=== PATIENT | male | born 1950 ===

== ENCOUNTER 2020-06-24 15:22 | Inpatient (IN) | payer SELFPAY ==
[~2020-06-24] VITALS: Ht 177.8 cm; Wt 88.2 kg
--- NOTE | 2020-06-24 16:04 | NUR ---
THIS IS A 69 YR OLD MALE WITH HX OF BLADDER AND PROSTATE CANCER, HTN, A-FIB, AND DMII. PT PRESENTED TO [facility] TODAY AFTER WHAT IS DESRIBED OFF AND ON DIZZINESS AND LIGHTHEADEDNESS FOR "SOME TIME." PT WAS FOUND TO BE IN A JUCTIONAL RHYTHM AND HYPERTENSIVE. PT IS AXOX4 AND DEIES ANY SOB, CP UPON RESTING. PT PLACED ON CARDIAC, NIBP, AND O2 MONITORING. CRASH CART AND ZOLL IN ROOM, PT PLACED ON ZOLL PADS. DAUGHTER AT BEDSIDE. DR PAYNE CARDS IN ROOM TO ASSESS AND UPDATE PT ON POC. PT IN GOWN AND ALL BELONGINGS BAGGED. DAUGHTER HAS IN HER POSSESSION PTS WALLET AND FARAH REMOVED FROM HIS PANTS.
[2020-06-24] MEDS ORDERED: CEFAZOLIN PMX 1GM/50ML 50 ML ONE ×2 (16:25→16:47)
[2020-06-24] MEDS ORDERED: CEFAZOLIN PMX 1GM/50ML 50 ML IVPB ONE (16:30)
[2020-06-24] MEDS: SODIUM CHLORIDE 0.9% 1,000 ML IV SCH ×2 (16:30→18:35)
[2020-06-24] MEDS ORDERED: LIDOCAINE 2%, 20ML ONE (16:47)
[2020-06-24] MEDS ORDERED: MIDAZOLAM 1 MG/ML, 5ML ONE (16:47)
[2020-06-24] MEDS ORDERED: CEFAZOLIN 1,000 MG ONE ×2 (16:47→17:17)
[2020-06-24] MEDS ORDERED: FENTANYL PF 100 MCG/2ML ONE (16:47)
--- NOTE | 2020-06-24 16:56 | NUR ---
PT TO POLYGRAPH EXAMINER NOW
[2020-06-24] MEDS ORDERED: DOCUSATE 100 MG CAPSULE PO PRN (19:00)
[2020-06-24] MEDS ORDERED: OXYcodone IR 5MG TABLET PO PRN (19:00)
[2020-06-24] MEDS ORDERED: TEMAZEPAM 15 MG CAPSULE PO PRN (19:00)
[2020-06-24] MEDS ORDERED: METHOCARBAMOL 500 MG TABLET PO PRN (19:00)
[2020-06-24] MEDS ORDERED: LABETALOL 5MG/ML, 20ML IVPush PRN ×2 (19:00→20:30)
[2020-06-24] MEDS ORDERED: ONDANSETRON 2MG/ML, 2ML IVPush PRN (19:00)
[2020-06-24] MEDS ORDERED: GUAIFENESIN/DM 200-20MG, 10ML UDC PO PRN (19:00)
[2020-06-24] MEDS ORDERED: ACETAMINOPHEN 325 MG TABLET PO PRN (19:00)
[2020-06-24] MEDS ORDERED: morphine SULFATE 10 MG/ML, 1ML IVPush PRN (19:00)
[2020-06-24 19:34] LABS: BASOPHILS % (AUTO) 0 % (0-1); EOSINOPHILS % (AUTO) 0 % (1-7); LYMPHOCYTES % (AUTO) 7 % (22-44); MEAN CORPUSCULAR HEMOGLOBIN 32.2 pg (27.5-34.5); MEAN CORPUSCULAR HGB CONC 33.5 g/dL (33.2-36.2); MONOCYTES % (AUTO) 5 % (2-9); NEUTROPHILS % (AUTO) 87 % (42-75); PLATELET COUNT 245 x10^3/uL (130-400); RED BLOOD COUNT 3.88 x10^6/uL (4.38-5.82); RED CELL DISTRIBUTION WIDTH 13.7 % (9.4-14.8)
[2020-06-24 19:46] LABS: ANION GAP 6 mmol/L (5-15); CALCIUM 8.6 mg/dL (8.5-10.1); CHLORIDE 111 mmol/L (98-107); CREATININE 1.77 mg/dL (0.7-1.3)
[2020-06-24 19:50] LABS: MD SCAN
[2020-06-24] MEDS ORDERED: ASPI-1026 PO (20:12)
[2020-06-24] MEDS ORDERED: FERR142T13 PO-COUM (20:12)
[2020-06-24] MEDS ORDERED: GLIM2TAB7 PO (20:12)
[2020-06-24] MEDS ORDERED: vitamin d (20:12)
[2020-06-24] MEDS ORDERED: CA C1TAB63 PO (20:12)
[2020-06-24] MEDS ORDERED: VIT1TABL34 PO (20:12)
[2020-06-24] MEDS ORDERED: METF500T17 PO (20:12)
[2020-06-24] MEDS ORDERED: METO-93 PO (20:17)
[2020-06-24 20:50] VITALS: BP 167/85
[2020-06-24] MEDS ORDERED: INSU100C SQ-INSULIN (20:50)
[2020-06-24] MEDS ORDERED: novalog (20:50)
[2020-06-24] MEDS: FAMOTIDINE 20 MG TABLET PO SCH (20:56)
[2020-06-24] MEDS ORDERED: INSULIN LISPRO 100 UNITS/ML, PEN SQ-INSULIN SCH (21:30)
[2020-06-24] MEDS ORDERED: INSU100V13 SQ (21:31)
[2020-06-24] MEDS ORDERED: INSULIN GLARGINE 100 UNITS/ML, PEN SQ-INSULIN SCH (22:00)
[2020-06-24 22:43] VITALS: BP 191/97
[2020-06-24] MEDS: ENALAPRILAT 1.25 MG/ML, 2ML IVPush PRN ×2 (22:44→23:25)
[2020-06-25] MEDS: CEFAZOLIN PMX 1GM/50ML 50 ML IV SCH ×2 (00:15→08:45)
[2020-06-25] MEDS ORDERED: CEFAZOLIN 1,000 MG IM SCH (00:30)
[2020-06-25 01:01] VITALS: BP 174/91
[2020-06-25] MEDS: hydrALAzine 20 MG/ML, 1ML IV PRN ×2 (02:24→09:04)
[2020-06-25] MEDS ORDERED: LABETALOL 5MG/ML, 20ML IVPush PRN (03:30)
[2020-06-25 05:35] LABS: BASOPHILS % (AUTO) 1 % (0-1); EOSINOPHILS % (AUTO) 1 % (1-7); LYMPHOCYTES % (AUTO) 11 % (22-44); MEAN CORPUSCULAR HEMOGLOBIN 32.3 pg (27.5-34.5); MEAN CORPUSCULAR HGB CONC 34.2 g/dL (33.2-36.2); MEAN PLATELET VOLUME 8.4 fL (7.4-10.4); MONOCYTES % (AUTO) 8 % (2-9); NEUTROPHILS % (AUTO) 80 % (42-75); PLATELET COUNT 233 x10^3/uL (130-400); RED BLOOD COUNT 3.82 x10^6/uL (4.38-5.82); RED CELL DISTRIBUTION WIDTH 13.5 % (9.4-14.8)
[2020-06-25 05:38] LABS: MD NO
[2020-06-25 05:44] LABS: ANION GAP 8 mmol/L (5-15); CHLORIDE 112 mmol/L (98-107)
[2020-06-25 05:45] LABS: CREATININE 1.66 mg/dL (0.7-1.3)
[2020-06-25 06:23] VITALS: BP 169/81
[2020-06-25 07:35] VITALS: BP 176/90
[2020-06-25] MEDS: SODIUM CHLORIDE 0.9% 1,000 ML IV SCH (08:30)
[2020-06-25] MEDS: FAMOTIDINE 20 MG TABLET PO SCH (08:45)
[2020-06-25 09:02] VITALS: BP 176/89
[2020-06-25] MEDS ORDERED: LISINOPRIL 20 MG TABLET PO SCH (09:30)
[2020-06-25] MEDS ORDERED: METOPROLOL SUCCINATE 50 MG TAB.ER.24H PO SCH (09:30)
[2020-06-25] MEDS ORDERED: HYDROCHLOROTHIAZIDE 25 MG TABLET PO SCH (09:30)
[2020-06-25] MEDS ORDERED: AMLODIPINE 5 MG TABLET PO SCH (10:00)
[2020-06-25] MEDS: INSULIN REGULAR 100 UNITS/ML, 3ML VIAL SQ-INSULIN SCH ×3 (10:26→16:00)
[2020-06-25 11:36] VITALS: BP 174/88
[2020-06-25] MEDS ORDERED: FUROSEMIDE 20 MG/2 ML IV ONE (12:00)
[2020-06-25] MEDS ORDERED: AMLODIPINE 5 MG TABLET PO ONE (12:00)
[2020-06-25] MEDS: ENALAPRILAT 1.25 MG/ML, 2ML IVPush PRN (12:21)
[2020-06-25 12:44] VITALS: BP 165/75
[2020-06-25] MEDS ORDERED: RIVA20TA PO (14:05)
[2020-06-25] MEDS ORDERED: AMLO-211 PO (14:05)
[2020-06-25] MEDS ORDERED: RIVAROXABAN 15 MG TABLET PO SCH (17:00)
[2020-06-25] MEDS ORDERED: VITAMIN D3 HOMEMEDPO SCH (21:00)
[2020-06-25] MEDS ORDERED: CA CARBONATE HOMEMEDPO SCH (21:00)
[2020-06-25] MEDS ORDERED: VIT K HOMEMEDPO SCH (21:00)
[2020-06-26] MEDS ORDERED: FAMOTIDINE 20 MG TABLET PO SCH (09:00)
[2020-06-26] MEDS ORDERED: AMLODIPINE 10 MG TAB PO SCH (09:00)
== END 2020-06-25 16:32 | disposition home or self-care (01) | DRG 243 ==
LOC: ED 17:17 → SUATTDRO 17:26 → 5SO 18:09
PROVIDERS: ADMIT Hospitalist; ATTEND Internal Medicine
PROC: 0JH604Z Insertion of Pacemaker, Single Chamber into Chest Subcutaneous Tissue and Fascia, Open Approach (ICD-10-PCS; principal; 2020-06-24)
PROC: 02HK3JZ Insertion of Pacemaker Lead into Right Ventricle, Percutaneous Approach (ICD-10-PCS; 2020-06-24)
DX: I44.2 Atrioventricular block, complete (principal); D68.69 Other thrombophilia; N17.9 Acute kidney failure, unspecified; D50.9 Iron deficiency anemia, unspecified; E87.8 Other disorders of electrolyte and fluid balance, not elsewhere classified; R00.1 Bradycardia, unspecified; R42 Dizziness and giddiness; I48.20 Chronic atrial fibrillation, unspecified; N28.9 Disorder of kidney and ureter, unspecified; I12.9 Hypertensive chronic kidney disease with stage 1 through stage 4 chronic kidney disease, or unspecified chronic kidney disease; N18.9 Chronic kidney disease, unspecified; E11.22 Type 2 diabetes mellitus with diabetic chronic kidney disease; Z85.46 Personal history of malignant neoplasm of prostate; Z85.51 Personal history of malignant neoplasm of bladder
CPT/HCPCS: 36415; J3490; 71045; 80048; 82962; 83036; 83735; 84100; 84443; 85025; 93005; 96365; 96366; 99285; G0378; J0690; J1815; J2250; J3010; J0360; J1940; J7030